=== PATIENT | female | born 1960 | race African-American/Black ===

== ENCOUNTER 2017-09-04 16:05 | Emergency (ER) | payer SELFPAY ==
[~2017-09-04] VITALS: Ht 170.2 cm; Wt 120.0 kg
[2017-09-04 16:06] VITALS: BP 145/77
== END 2017-09-04 20:59 | disposition left against medical advice (07) ==
LOC: ER 16:19
DX: Z53.21 Procedure and treatment not carried out due to patient leaving prior to being seen by health care provider (principal)

== ENCOUNTER 2022-07-07 16:29 | Inpatient (IN) | payer MEDICARE ==
[~2022-07-07] VITALS: Ht 165.1 cm; Wt 125.6 kg
[2022-07-07] MEDS ORDERED: ACETAMINOPHEN 325MG TABLET PO STA (17:01)
[2022-07-07] MEDS ORDERED: SODIUM CHLORIDE 0.9% 1,000 ML IV ONE (17:15)
[2022-07-07] MEDS ORDERED: INSULIN REGULAR (HUMULIN R) 300UNITS/3ML VIAL IV ONE (17:15)
[2022-07-07 17:56] LABS: BASOPHILS % 0.3 % (0.0-2.0); EOSINOPHILS % 0.7 % (0.0-5.0); HEMATOCRIT. 36.7 % (36.0-48.0); HEMOGLOBIN. 11.8 g/dL (12.0-16.0); LYMPHOCYTES % 9.8 % (20.0-50.0); MEAN CORPUSCULAR HEMOGLOBIN 23.4 pg (28.0-32.0); MEAN CORPUSCULAR VOLUME 73.1 fL (81.0-99.0); MEAN PLATELET VOLUME 9.4 fl (7.4-10.4); MONOCYTES % 5.3 % (2.0-8.0); NEUTROPHILS % 83.9 % (40.0-76.0); PLATELET 164 x1000/uL (130-400); RED BLOOD CELL COUNT 5.02 mill/uL (4.2-5.4); RED CELL DISTRIBUTION WIDTH 14.6 % (11.6-14.6)
[2022-07-07 18:06] LABS: CHLORIDE 103 mEq/L (98-107)
[2022-07-07 18:13] LABS: BETA HYDROXYBUTYRATE 0.1 mMol/L (0.0-0.3)
[2022-07-07] MEDS ORDERED: MORPHINE SULFATE 4 MG/ML CPJ (NOT FOR IM USE) IV ONE (18:30)
[2022-07-07] MEDS ORDERED: MORPHINE SULFATE 4 MG/ML CPJ (NOT FOR IM USE) IV NR (23:15)
[2022-07-07] MEDS ORDERED: ONDANSETRON HCL 4MG/2ML INJ IV PRN (23:30)
[2022-07-07] MEDS ORDERED: ACETAMINOPHEN 325MG TABLET PO PRN ×2 (23:30)
[2022-07-07] MEDS ORDERED: IPRATROPIUM/ALBUTEROL 0.5-3(2.5)MG/3ML NEB HHN PRN (23:30)
[2022-07-07] MEDS ORDERED: MAGNESIUM/ALUMINUM HYDROXIDE/SIMETHICONE 30ML UDC PO PRN (23:30)
[2022-07-07] MEDS ORDERED: CLONIDINE 0.1MG TABLET PO PRN (23:30)
[2022-07-07] MEDS ORDERED: LORAZEPAM 2MG/ML CPJ IV PRN (23:30)
[2022-07-07] MEDS ORDERED: DEXTROSE 50% WATER 50ML SYRINGE IV PRN (23:45)
[2022-07-07] MEDS ORDERED: ALBUTEROL (0.083%) 2.5MG/3ML NEB HHN PRN (23:45)
[2022-07-07] MEDS ORDERED: IPRATROPIUM BROMIDE (0.02%) 0.5MG/2.5ML NEB HHN PRN (23:45)
[2022-07-08] MEDS ORDERED: NITROGLYCERIN 0.4MG TABLET SL SL PRN
[2022-07-08] MEDS: TRAZODONE HCL 50MG TABLET PO SCH ×3 (01:34→17:27)
[2022-07-08] MEDS: ENOXAPARIN 30MG/0.3ML SYR SUBCUT SCH ×3 (01:34→21:20)
[2022-07-08 02:04] LABS: INR 1.1; PARTIAL THROMBOPLASTIN TIME 23.4 sec (23.4-31.0); PROTHROMBIN TIME 11.3 sec (9.6-11.0)
[2022-07-08 02:11] LABS: PHOSPHORUS 2.6 mg/dL (2.5-4.9)
[2022-07-08 02:26] LABS: CREATINE KINASE 39 IU/L (26-192); CREATINE KINASE MB FRACTION < 1.0 ng/mL (0.5-3.6)
[2022-07-08 02:34] LABS: VITAMIN B12 SERUM 753 pg/mL (211-911)
[2022-07-08 03:00] VITALS: BP 151/62
[2022-07-08] MEDS: HYDROCHLOROTHIAZIDE 12.5MG CAPSULE PO SCH ×2 (03:00→08:22)
[2022-07-08 03:01] LABS: FERRITIN 142 ng/mL (10-291)
[2022-07-08 03:18] LABS: FOLIC ACID (FOLATE) SERUM > 20.00 ng/mL (>5.38)
[2022-07-08 08:00] VITALS: BP 150/53
[2022-07-08] MEDS: BLOOD SUGAR DIAGNOSTIC STRIP TEST SCH ×4 (08:03→21:00)
[2022-07-08] MEDS: FAMOTIDINE 20MG TABLET PO SCH ×2 (08:22→21:19)
[2022-07-08] MEDS: DULOXETINE HCL 30MG DR CAPSULE PO SCH ×2 (08:23→21:20)
[2022-07-08] MEDS: FUROSEMIDE 40MG/4ML VIAL IVP SCH (08:23)
[2022-07-08] MEDS: INSULIN LISPRO 100 UNITS/ML SUBCUT SCH ×4 (08:31→21:26)
[2022-07-08] MEDS: HYDROCODONE/ACETAMINOPHEN 5/325MG TABLET PO PRN ×2 (08:51→17:35)
[2022-07-08 09:15] LABS: BASOPHILS % 0.4 % (0.0-2.0); EOSINOPHILS % 3.1 % (0.0-5.0); HEMATOCRIT. 35.3 % (36.0-48.0); HEMOGLOBIN. 11.4 g/dL (12.0-16.0); LYMPHOCYTES % 21.9 % (20.0-50.0); MEAN CORPUSCULAR HEMOGLOBIN 23.3 pg (28.0-32.0); MEAN CORPUSCULAR VOLUME 72.3 fL (81.0-99.0); MEAN PLATELET VOLUME 10.3 fl (7.4-10.4); MONOCYTES % 5.8 % (2.0-8.0); NEUTROPHILS % 68.8 % (40.0-76.0); PLATELET 151 x1000/uL (130-400); RED BLOOD CELL COUNT 4.89 mill/uL (4.2-5.4); RED CELL DISTRIBUTION WIDTH 14.3 % (11.6-14.6)
[2022-07-08 09:19] LABS: CHLORIDE 102 mEq/L (98-107)
[2022-07-08 09:35] LABS: CREATINE KINASE 32 IU/L (26-192); CREATINE KINASE MB FRACTION < 1.0 ng/mL (0.5-3.6); T4 FREE 1.24 ng/dL (0.76-1.46)
[2022-07-08 12:00] VITALS: BP 145/59
[2022-07-08] MEDS: FERROUS SULFATE 325MG TABLET PO SCH ×2 (12:56→17:27)
[2022-07-08 16:00] VITALS: BP 141/64
[2022-07-08 16:31] LABS: CREATINE KINASE 31 IU/L (26-192); CREATINE KINASE MB FRACTION < 1.0 ng/mL (0.5-3.6)
[2022-07-08] MEDS: NEOMY SULF/BACITRAC ZN/POLY OINT 28GM TOP SCH (17:27)
[2022-07-08 20:00] VITALS: BP 110/29
[2022-07-08] MEDS: ATORVASTATIN CALCIUM 40MG TABLET PO SCH (21:19)
[2022-07-09] VITALS: BP 124/54
[2022-07-09 04:00] VITALS: BP 135/47
[2022-07-09] MEDS: HYDROCODONE/ACETAMINOPHEN 5/325MG TABLET PO PRN ×4 (04:16→23:12)
[2022-07-09] MEDS: BLOOD SUGAR DIAGNOSTIC STRIP TEST SCH ×4 (07:20→21:40)
[2022-07-09 08:00] VITALS: BP 141/66
[2022-07-09 08:55] LABS: BASOPHILS % 0.4 % (0.0-2.0); EOSINOPHILS % 3.8 % (0.0-5.0); HEMATOCRIT. 33.3 % (36.0-48.0); HEMOGLOBIN. 10.9 g/dL (12.0-16.0); LYMPHOCYTES % 31.9 % (20.0-50.0); MEAN CORPUSCULAR HEMOGLOBIN 23.5 pg (28.0-32.0); MEAN CORPUSCULAR VOLUME 71.6 fL (81.0-99.0); MEAN PLATELET VOLUME 10.2 fl (7.4-10.4); MONOCYTES % 5.4 % (2.0-8.0); NEUTROPHILS % 58.5 % (40.0-76.0); PLATELET 145 x1000/uL (130-400); RED BLOOD CELL COUNT 4.65 mill/uL (4.2-5.4); RED CELL DISTRIBUTION WIDTH 14.4 % (11.6-14.6)
[2022-07-09 09:13] LABS: CHLORIDE 101 mEq/L (98-107)
[2022-07-09] MEDS: FERROUS SULFATE 325MG TABLET PO SCH ×3 (09:19→17:50)
[2022-07-09] MEDS: FAMOTIDINE 20MG TABLET PO SCH ×2 (09:19→21:15)
[2022-07-09] MEDS: TRAZODONE HCL 50MG TABLET PO SCH ×2 (09:19→17:50)
[2022-07-09] MEDS: DULOXETINE HCL 30MG DR CAPSULE PO SCH ×2 (09:19→21:15)
[2022-07-09] MEDS: HYDROCHLOROTHIAZIDE 12.5MG CAPSULE PO SCH (09:19)
[2022-07-09] MEDS: ENOXAPARIN 30MG/0.3ML SYR SUBCUT SCH (09:20)
[2022-07-09] MEDS: FUROSEMIDE 40MG/4ML VIAL IVP SCH (09:20)
[2022-07-09] MEDS: INSULIN LISPRO 100 UNITS/ML SUBCUT SCH ×4 (09:27→21:48)
[2022-07-09] MEDS: NEOMY SULF/BACITRAC ZN/POLY OINT 28GM TOP SCH (09:36)
[2022-07-09 12:00] VITALS: BP 138/75
[2022-07-09 16:00] VITALS: BP 153/72
[2022-07-09] MEDS ORDERED: POTASSIUM CHLORIDE 20MEQ TABLET SR PO NR (17:30)
[2022-07-09 20:00] VITALS: BP 123/61
[2022-07-09] MEDS: ATORVASTATIN CALCIUM 40MG TABLET PO SCH (21:15)
[2022-07-09] MEDS: ENOXAPARIN 40MG/0.4ML SYR SUBCUT SCH (21:16)
[2022-07-10 05:19] LABS: CHLORIDE 100 mEq/L (98-107)
[2022-07-10 06:02] LABS: BASOPHILS % 0.3 % (0.0-2.0); HEMATOCRIT. 32.9 % (36.0-48.0); HEMOGLOBIN. 10.8 g/dL (12.0-16.0); MEAN CORPUSCULAR HEMOGLOBIN 23.4 pg (28.0-32.0); MEAN CORPUSCULAR VOLUME 71.4 fL (81.0-99.0); MEAN PLATELET VOLUME 10.2 fl (7.4-10.4); NEUTROPHILS % 54.7 % (40.0-76.0); PLATELET 140 x1000/uL (130-400); RED BLOOD CELL COUNT 4.61 mill/uL (4.2-5.4); RED CELL DISTRIBUTION WIDTH 14.3 % (11.6-14.6)
[2022-07-10] MEDS: BLOOD SUGAR DIAGNOSTIC STRIP TEST SCH ×4 (06:51→21:00)
[2022-07-10 08:00] VITALS: BP 148/46
[2022-07-10] MEDS: HYDROCHLOROTHIAZIDE 12.5MG CAPSULE PO SCH (08:26)
[2022-07-10] MEDS: NEOMY SULF/BACITRAC ZN/POLY OINT 28GM TOP SCH (08:26)
[2022-07-10] MEDS: DULOXETINE HCL 30MG DR CAPSULE PO SCH ×2 (08:26→21:12)
[2022-07-10] MEDS: FUROSEMIDE 40MG/4ML VIAL IVP SCH (08:26)
[2022-07-10] MEDS: TRAZODONE HCL 50MG TABLET PO SCH ×2 (08:27→17:57)
[2022-07-10] MEDS: ENOXAPARIN 40MG/0.4ML SYR SUBCUT SCH ×2 (08:27→21:12)
[2022-07-10] MEDS: FERROUS SULFATE 325MG TABLET PO SCH ×3 (08:27→17:57)
[2022-07-10] MEDS: FAMOTIDINE 20MG TABLET PO SCH ×2 (08:27→21:12)
[2022-07-10] MEDS: INSULIN LISPRO 100 UNITS/ML SUBCUT SCH ×4 (08:56→21:40)
[2022-07-10 12:00] VITALS: BP 99/47
[2022-07-10] MEDS: POTASSIUM CHLORIDE 20MEQ TABLET SR PO SCH (13:34)
[2022-07-10] MEDS: MAGNESIUM OXIDE 400MG TABLET PO SCH (13:35)
[2022-07-10] MEDS: HYDROCODONE/ACETAMINOPHEN 5/325MG TABLET PO PRN ×2 (14:49→21:11)
[2022-07-10 16:00] VITALS: BP 106/39
[2022-07-10 20:00] VITALS: BP 123/75
[2022-07-10] MEDS: ATORVASTATIN CALCIUM 40MG TABLET PO SCH (21:11)
[2022-07-11] VITALS: BP 108/56
[2022-07-11] MEDS: BLOOD SUGAR DIAGNOSTIC STRIP TEST SCH ×4 (06:49→21:17)
[2022-07-11 07:47] LABS: CHLORIDE 101 mEq/L (98-107)
[2022-07-11 08:00] VITALS: BP 145/34
[2022-07-11] MEDS: NEOMY SULF/BACITRAC ZN/POLY OINT 28GM TOP SCH (09:00)
[2022-07-11] MEDS: HYDROCHLOROTHIAZIDE 12.5MG CAPSULE PO SCH (09:28)
[2022-07-11] MEDS: TRAZODONE HCL 50MG TABLET PO SCH ×2 (09:28→18:07)
[2022-07-11] MEDS: POTASSIUM CHLORIDE 20MEQ TABLET SR PO SCH (09:28)
[2022-07-11] MEDS: FAMOTIDINE 20MG TABLET PO SCH ×2 (09:28→20:54)
[2022-07-11] MEDS: DULOXETINE HCL 30MG DR CAPSULE PO SCH ×2 (09:28→20:53)
[2022-07-11] MEDS: MAGNESIUM OXIDE 400MG TABLET PO SCH (09:29)
[2022-07-11] MEDS: ENOXAPARIN 40MG/0.4ML SYR SUBCUT SCH ×2 (09:29→20:54)
[2022-07-11] MEDS: FERROUS SULFATE 325MG TABLET PO SCH ×3 (09:38→18:07)
[2022-07-11] MEDS: INSULIN LISPRO 100 UNITS/ML SUBCUT SCH ×4 (09:45→20:57)
[2022-07-11] MEDS: FUROSEMIDE 40MG/4ML VIAL IVP SCH (10:27)
[2022-07-11] MEDS: HYDROCODONE/ACETAMINOPHEN 5/325MG TABLET PO PRN ×3 (10:31→21:32)
[2022-07-11 12:00] VITALS: BP 112/49
[2022-07-11 16:00] VITALS: BP 125/61
[2022-07-11 20:00] VITALS: BP 120/63
[2022-07-11] MEDS: ATORVASTATIN CALCIUM 40MG TABLET PO SCH (20:54)
[2022-07-11] MEDS: MUPIROCIN 2% OINT 15GM NS SCH (20:55)
[2022-07-12] VITALS: BP 105/50
[2022-07-12 04:00] VITALS: BP 156/50
[2022-07-12] MEDS: BLOOD SUGAR DIAGNOSTIC STRIP TEST SCH (07:04)
[2022-07-12 08:00] VITALS: BP 158/58
[2022-07-12] MEDS: FERROUS SULFATE 325MG TABLET PO SCH ×2 (09:05→13:00)
[2022-07-12] MEDS: FAMOTIDINE 20MG TABLET PO SCH (09:05)
[2022-07-12] MEDS: HYDROCHLOROTHIAZIDE 12.5MG CAPSULE PO SCH (09:05)
[2022-07-12] MEDS: DULOXETINE HCL 30MG DR CAPSULE PO SCH (09:05)
[2022-07-12] MEDS: TRAZODONE HCL 50MG TABLET PO SCH (09:05)
[2022-07-12] MEDS: POTASSIUM CHLORIDE 20MEQ TABLET SR PO SCH (09:05)
[2022-07-12] MEDS: ENOXAPARIN 40MG/0.4ML SYR SUBCUT SCH (09:22)
[2022-07-12] MEDS: FUROSEMIDE 40MG/4ML VIAL IVP SCH (09:28)
[2022-07-12] MEDS: MUPIROCIN 2% OINT 15GM NS SCH (09:29)
[2022-07-12] MEDS: NEOMY SULF/BACITRAC ZN/POLY OINT 28GM TOP SCH (09:29)
[2022-07-12] MEDS: MAGNESIUM OXIDE 400MG TABLET PO SCH (09:30)
[2022-07-12] MEDS: INSULIN LISPRO 100 UNITS/ML SUBCUT SCH ×2 (09:31→14:03)
[2022-07-12 12:00] VITALS: BP 122/59
[2022-07-12 12:52] VITALS: BP 122/59
[2022-07-12] MEDS ORDERED: MUPIROCIN 2% OINT 22GM NS SCH (21:00)
== END 2022-07-12 13:56 | DRG 638 ==
LOC: ER 16:29 → MICUSO 21:33 → 6EST 07-08 02:18
PROVIDERS: ADMIT Hospitalist; ATTEND Hospitalist
DX: E11.00 Type 2 diabetes mellitus with hyperosmolarity without nonketotic hyperglycemic-hyperosmolar coma (NKHHC) (principal); E44.0 Moderate protein-calorie malnutrition; Z68.42 Body mass index [BMI] 45.0-49.9, adult; E11.42 Type 2 diabetes mellitus with diabetic polyneuropathy; E66.01 Morbid (severe) obesity due to excess calories; D50.9 Iron deficiency anemia, unspecified; I16.0 Hypertensive urgency; I50.9 Heart failure, unspecified; D63.8 Anemia in other chronic diseases classified elsewhere; F32.A Depression, unspecified; F41.9 Anxiety disorder, unspecified; I95.9 Hypotension, unspecified; E78.5 Hyperlipidemia, unspecified; I11.0 Hypertensive heart disease with heart failure; Z20.822 Contact with and (suspected) exposure to COVID-19; Z86.73 Personal history of transient ischemic attack (TIA), and cerebral infarction without residual deficits; Z79.899 Other long term (current) drug therapy; Z79.4 Long term (current) use of insulin
CPT/HCPCS: 36415; 71045; 73560; 80048; 80053; 80061; 82010; 82550; 82553; 82607; 82728; 82746; 82962; 83036; 83540; 83550; 83735; 83880; 84100; 84439; 84443; 84484; 85025; 87426; 93005; 93306; 93970; 97110; 97162; 97166; 99285; A6261; J1650; J1815; J1940; J2060; J2270; J7030

== ENCOUNTER 2024-07-13 13:18 | Emergency (ER) | payer MEDICARE, OTHER ==
[~2024-07-13] VITALS: Ht 172.7 cm; Wt 155.0 kg
[2024-07-13 13:22] VITALS: TEMP 37.1; O2SAT 98
[2024-07-13 14:17] LABS: CHLORIDE 104 mEq/L (98-107); POTASSIUM 3.9 mEq/L (3.5-5.1); SODIUM 144 mEq/L (136-145)
[2024-07-13 14:18] LABS: CALCIUM 8.8 mg/dL (8.7-10.4); CARBON DIOXIDE 34 mEq/L (21-32)
[2024-07-13 14:22] LABS: CREATININE 0.7 mg/dL (0.6-1.0)
[2024-07-13 14:23] LABS: BASOPHILS % 0.3 % (0.0-2.0); DIFFERENTIAL COMMENT 0; EOSINOPHILS % 3.5 % (0.0-5.0); GLUCOSE 141 mg/dL (70-105); HEMATOCRIT. 37.9 % (36.0-48.0); HEMOGLOBIN. 11.7 g/dL (12.0-16.0); LYMPHOCYTES % 36.3 % (20.0-50.0); MEAN CORPUSCULAR HEMOGLOBIN 22.7 pg (28.0-32.0); MEAN CORPUSCULAR HGB CONC 30.9 g/dL (31.0-37.0); MEAN CORPUSCULAR VOLUME 73.5 fL (81.0-99.0); MEAN PLATELET VOLUME 9.2 fl (7.4-10.4); MONOCYTES % 6.2 % (2.0-8.0); NEUTROPHILS % 53.7 % (40.0-76.0); PLATELET 168 x1000/uL (130-400); RED BLOOD CELL COUNT 5.15 mill/uL (4.2-5.4); RED CELL DISTRIBUTION WIDTH 13.4 % (11.6-14.6); TROPONIN I HIGH SENSITIVITY 4 ng/L (3.0-34); UREA NITROGEN BLOOD 7 mg/dL (9-23); WHITE BLOOD COUNT 6.8 x1000/uL (4.5-11.0)
[2024-07-13 19:47] VITALS: BP 152/41; PULSE 79; RESP 16; O2SAT 97
[2024-07-13] MEDS: METOPROLOL TARTRATE 50MG TABLET PO ONE (19:49)
[2024-07-13] MEDS: HYDRALAZINE 20MG/ML VIAL IV ONE (19:49)
== END 2024-07-13 20:14 | disposition admitted as inpatient to this hospital (09) ==
LOC: ER 13:18 → CANBEDREQ 17:43 → ER 20:14
DX: G89.29 Other chronic pain (principal); R07.89 Other chest pain; E11.9 Type 2 diabetes mellitus without complications; I11.0 Hypertensive heart disease with heart failure; I50.9 Heart failure, unspecified; Z86.73 Personal history of transient ischemic attack (TIA), and cerebral infarction without residual deficits
CPT/HCPCS: 99285; 96374; 71045; 80048; 83880; 85025; 84484; 36415; 93005; J0360